=== PATIENT | female | born 1950 | race Two or more races ===

== ENCOUNTER 2020-04-17 16:47 | Inpatient (IN) | payer MEDICARE, MEDICAID ==
[~2020-04-17] VITALS: Ht 157.5 cm; Wt 83.0 kg
[2020-04-17] MEDS ORDERED: ENAL10TA PO (16:56)
[2020-04-17] MEDS ORDERED: BENA40TA9 PO (16:56)
[2020-04-17] MEDS ORDERED: HYDR12.54 PO (16:56)
[2020-04-17] MEDS ORDERED: ONDANSETRON HCL 4MG/2ML INJ IV STA (18:55)
[2020-04-17] MEDS ORDERED: MORPHINE SULFATE 4 MG/ML CPJ (NOT FOR IM USE) IV STA (18:55)
[2020-04-17 20:07] LABS: BASOPHILS % 0.3 % (0.0-2.0); HEMATOCRIT. 41.1 % (36.0-48.0); HEMOGLOBIN. 14.1 g/dL (12.0-16.0); MEAN CORPUSCULAR VOLUME 84.8 fL (81.0-99.0); MEAN PLATELET VOLUME 8.7 fl (7.4-10.4); MONOCYTES % 6.2 % (2.0-8.0); NEUTROPHILS % 85.5 % (40.0-76.0); PLATELET 191 x1000/uL (130-400); RED BLOOD CELL COUNT 4.85 mill/uL (4.2-5.4); RED CELL DISTRIBUTION WIDTH 15.2 % (11.6-14.6)
[2020-04-17 20:10] LABS: CHLORIDE 101 mEq/L (98-107)
[2020-04-17 20:13] LABS: PROTHROMBIN TIME 10.8 sec (9.6-11.0)
[2020-04-17] MEDS ORDERED: IOHEXOL-300 100 ML BOTTLE ONE (21:34)
[2020-04-17] MEDS ORDERED: POTASSIUM CHLORIDE 20MEQ TABLET SR PO ONE (21:45)
[2020-04-17] MEDS ORDERED: MORPHINE SULFATE 4 MG/ML CPJ (NOT FOR IM USE) IV ONE (22:00)
[2020-04-17] MEDS ORDERED: CLINDAMYCIN 600 MG in DEXTROSE 5% WATER 50 ML IV ONE (22:15)
[2020-04-17] MEDS ORDERED: HYDROCODONE/APAP 7.5/325MG 1 TAB TABLET PO PRN (23:15)
[2020-04-17] MEDS ORDERED: GUAIFENESIN 200MG/10ML SUGAR FREE UDC PO PRN (23:15)
[2020-04-17] MEDS ORDERED: DOCUSATE SODIUM 100MG CAPSULE PO PRN (23:15)
[2020-04-17] MEDS ORDERED: CLONIDINE 0.1MG TABLET PO PRN (23:15)
[2020-04-17] MEDS ORDERED: ACETAMINOPHEN 325MG TABLET PO PRN (23:15)
[2020-04-17] MEDS ORDERED: ONDANSETRON HCL 4MG/2ML INJ IV PRN (23:15)
[2020-04-18] MEDS ORDERED: DEXT 5%/0.45% NACL KCL 10MEQ/L 1,000 ML IV SCH (01:30)
[2020-04-18] MEDS ORDERED: PIPERACILLIN/TAZ 3.375G PREMIX 50 ML IV SCH (02:00)
[2020-04-18 04:37] LABS: BASOPHILS % 0.3 % (0.0-2.0); HEMATOCRIT. 40.4 % (36.0-48.0); HEMOGLOBIN. 13.6 g/dL (12.0-16.0); LYMPHOCYTES % 11.5 % (20.0-50.0); MEAN CORPUSCULAR HEMOGLOBIN 28.6 pg (28.0-32.0); MEAN CORPUSCULAR VOLUME 84.8 fL (81.0-99.0); MONOCYTES % 10.7 % (2.0-8.0); NEUTROPHILS % 77.5 % (40.0-76.0); PLATELET 203 x1000/uL (130-400); RED BLOOD CELL COUNT 4.76 mill/uL (4.2-5.4); RED CELL DISTRIBUTION WIDTH 15.4 % (11.6-14.6)
[2020-04-18 04:43] LABS: CHLORIDE 103 mEq/L (98-107)
[2020-04-18 08:00] VITALS: BP 136/57
[2020-04-18] MEDS ORDERED: IBUP-2030 MT (09:44)
[2020-04-18] MEDS ORDERED: DOCU250C14 MT (09:44)
[2020-04-18] MEDS ORDERED: LORA-250 PO (09:44)
[2020-04-18] MEDS ORDERED: TRAZ-251 MT (09:44)
[2020-04-18] MEDS ORDERED: SERT50TA MT (09:44)
[2020-04-18] MEDS ORDERED: OMEP40CA12 MT (09:44)
[2020-04-18] MEDS ORDERED: LORA10TA7 MT (09:44)
[2020-04-18] MEDS ORDERED: ATOR40TA70 MT (09:44)
[2020-04-18 09:50] VITALS: BP 136/57
[2020-04-18 12:00] VITALS: BP 115/58
[2020-04-18] MEDS: PIPERACILLIN/TAZOBACTAM 3.375 G in DEXT 5% WATER 100 ML IV SCH ×2 (12:18→17:51)
[2020-04-18] MEDS: DEXT 5%/0.45% NACL KCL 10MEQ/L 1,000 ML IV SCH (12:18)
[2020-04-18 16:00] VITALS: BP 106/38
[2020-04-18 20:00] VITALS: BP 143/60
[2020-04-18] MEDS ORDERED: ATORVASTATIN CALCIUM 40MG TABLET PO SCH (23:45)
[2020-04-18] MEDS ORDERED: LORAZEPAM 1MG TABLET PO SCH (23:50)
[2020-04-18] MEDS ORDERED: TRAZODONE HCL 50MG TABLET PO SCH (23:50)
[2020-04-18] MEDS: SERTRALINE HCL 50MG TABLET PO SCH (23:50)
[2020-04-19] VITALS: BP 120/67
[2020-04-19] MEDS: PIPERACILLIN/TAZOBACTAM 3.375 G in DEXT 5% WATER 100 ML IV SCH ×3 (00:12→11:27)
[2020-04-19] MEDS: DEXT 5%/0.45% NACL KCL 10MEQ/L 1,000 ML IV SCH (00:12)
[2020-04-19 04:00] VITALS: BP 106/59
[2020-04-19] MEDS ORDERED: OMEPRAZOLE 20MG CAPSULE EXTENDED RELEASE PO SCH (07:20)
[2020-04-19 08:55] VITALS: BP 127/49
[2020-04-19] MEDS ORDERED: LORATADINE 10MG TABLET PO SCH (09:00)
[2020-04-19] MEDS ORDERED: BENAZEPRIL 10MG TABLET PO SCH (09:00)
[2020-04-19] MEDS ORDERED: HYDROCHLOROTHIAZIDE 12.5MG CAPSULE PO SCH (09:00)
[2020-04-19] MEDS: SERTRALINE HCL 50MG TABLET PO SCH (09:17)
[2020-04-19] MEDS ORDERED: CLIN300C11 MT (11:40)
[2020-04-19 12:00] VITALS: BP 117/57
[2020-04-19 13:35] VITALS: BP 117/57
== END 2020-04-19 14:09 | disposition home or self-care (01) | DRG 158 ==
LOC: ER 16:47 → EDBEDREQTM 04-18 00:33 → EDBEDREQSVC 04-18 00:33 → 6EST 04-18 00:33 → EDBEDREQ 04-18 00:33 → EDBEDREQTM 04-18 00:37 → EDBEDREQDT 04-18 00:37 → ENRESERV 04-18 07:16
PROVIDERS: ADMIT Hospitalist; ATTEND Hospitalist
DX: K04.7 Periapical abscess without sinus (principal); E87.1 Hypo-osmolality and hyponatremia; E78.5 Hyperlipidemia, unspecified; E87.6 Hypokalemia; F32.9 Major depressive disorder, single episode, unspecified; I10 Essential (primary) hypertension; E66.9 Obesity, unspecified; L08.9 Local infection of the skin and subcutaneous tissue, unspecified; Z82.49 Family history of ischemic heart disease and other diseases of the circulatory system; Z85.3 Personal history of malignant neoplasm of breast; Z68.33 Body mass index [BMI] 33.0-33.9, adult; Z79.899 Other long term (current) drug therapy
CPT/HCPCS: 36415; 70487; 80053; 83605; 85025; 86850; 86900; 93005; 93970; 99285; J2270; J2405; J2543; J3490; J7060; Q9967